=== PATIENT | female | born 1950 | race Caucasian/White ===

== ENCOUNTER 2021-08-01 07:46 | Emergency (ER) | payer MEDICARE, BC ==
[~2021-08-01] VITALS: Ht 165.1 cm; Wt 40.9 kg
[2021-08-01] MEDS ORDERED: normal saline 1000ML IV soln IVB ONE (08:00)
[2021-08-01 08:22] LABS: BASOPHILS # (AUTO) 0.1 X10'3 (0-0.2); BASOPHILS % (AUTO) 0.8 % (0-1); EOSINOPHILS # (AUTO) 0.1 X10'3 (0-0.9); EOSINOPHILS % (AUTO) 0.4 % (0-6); HEMATOCRIT 41.7 % (35.0-45.0); HEMOGLOBIN 14.1 g/dl (12.0-16.0); LYMPHOCYTES # (AUTO) 3.2 X10'3 (1.1-4.8); LYMPHOCYTES % (AUTO) 24.6 % (21-51); MEAN CORPUSCULAR HGB CONC 33.7 g/dL (33.0-36.5); MEAN CORPUSCULAR VOLUME 97.9 FL (78-98); MEAN PLATELET VOLUME 9.6 FL (7.4-10.4); MONOCYTES # (AUTO) 0.6 X10'3 (0-0.9); MONOCYTES % (AUTO) 4.6 % (2-12); NEUTROPHILS # (AUTO) 9.1 X10'3 (1.8-7.7); NEUTROPHILS % (AUTO) 69.6 % (42-75); PLATELET COUNT 292 X10'3 (140-440); RED BLOOD COUNT 4.26 X10'6 (4.20-5.60); RED CELL DISTRIBUTION WIDTH 13.3 % (11.5-14.5); WHITE BLOOD COUNT 13.1 X10'3 (4.5-11.0)
[2021-08-01 08:37] LABS: ALANINE AMINOTRANSFERASE 42 U/L (12-78); ALBUMIN 3.6 G/DL (3.4-5.0); ALBUMIN/GLOBULIN RATIO 1.1 (1.1-1.5); ALKALINE PHOSPHATASE 73 IU/L (46-116); ANION GAP 10 (8-16); ASPARTATE AMINO TRANSFERASE 24 U/L (10-37); BILIRUBIN,TOTAL 0.6 MG/DL (0.1-1.0); BLOOD UREA NITROGEN 13 MG/DL (7-18); BUN/CREATININE RATIO 13.4 (6.6-38.0); CALCIUM 9.3 MG/DL (8.5-10.1); CHLORIDE 111 MMOL/L (99-107); CREATININE 0.97 MG/DL (0.40-0.90); GLUCOSE 191 MG/DL (70-104); POTASSIUM 3.5 MMOL/L (3.5-5.1); SODIUM 147 MMOL/L (135-145); TOTAL CARBON DIOXIDE 25.8 MMOL/L (24-32); TOTAL PROTEIN 6.8 G/DL (6.4-8.2); eGFR 57 ML/MIN
[2021-08-01 09:01] LABS: CLARITY,URINE CLOUDY (Clear); COLOR,URINE YELLOW (Yellow); UA COLLECTION TYPE STRAIGHT CATH
[2021-08-01 09:02] LABS: GLUCOSE, URINE NEGATIVE (Neg); KETONES,URINE NEGATIVE (Neg); LEUKOCYTE ESTERASE ,URINE NEGATIVE (Neg); NITRITES, URINE NEGATIVE (Neg); OCCULT BLOOD,URINE TRACE-INTACT (Neg); PROTEIN,URINE TRACE mg/dl (Neg); UROBILINOGEN,URINE 0.2 E.U/dL (0.2-1.0)
[2021-08-01 09:40] LABS: BACTERIA,URINE 2+ /HPF (Neg); MUCUS STRANDS MANY /LPF (Neg); RBC,URINE 0-2 /HPF (0-2); SQUAMOUS EPITHELIAL CELL,UR MANY /LPF (FEW); WBC,URINE 0-4 /HPF (0-4)
[2021-08-01 10:29] VITALS: BP 117/77
--- NOTE | 2021-08-01 10:45 | NUR ---
at the bedside. Pt is whispering softly to herself.
--- NOTE | 2021-08-01 11:34 | NUR ---
given d/c instructions. IV d/c'd, catheter was intact. Escorted to husbands car via wheelchair.
[2021-08-02] MEDS ORDERED: ESCI20TA39 PO (18:30)
[2021-08-02] MEDS ORDERED: CYAN50009 PO (18:30)
[2021-08-02] MEDS ORDERED: ESOM40CA54 PO (18:30)
[2021-08-02] MEDS ORDERED: OLAN10TA73 PO (18:30)
[2021-08-02] MEDS ORDERED: CHOL500050 PO (18:30)
[2021-08-02] MEDS ORDERED: IBAN150T21 PO (18:30)
== END 2021-08-01 11:32 | disposition home or self-care (01) ==
LOC: ER 07:48
DX: R55 Syncope and collapse (principal); R42 Dizziness and giddiness; E86.0 Dehydration; I95.9 Hypotension, unspecified; Z88.2 Allergy status to sulfonamides; Z88.8 Allergy status to other drugs, medicaments and biological substances
CPT/HCPCS: 36415; 71045; 80053; 81001; 85025; 93005; 99285; J7030

== ENCOUNTER 2021-08-02 16:58 | Inpatient (IN) | payer MEDICARE, BC ==
[~2021-08-02] VITALS: Ht 165.1 cm; Wt 40.8 kg
[2021-08-02 17:30] VITALS: BP 125/83
[2021-08-02] MEDS ORDERED: magnesium 4gm in 100ml NS 100 ML IV PRN (17:35)
[2021-08-02] MEDS ORDERED: ondansetron/PF 4mg/2ml inj IV PRN (17:35)
[2021-08-02] MEDS ORDERED: mag hydrox/Alum hydrox/simeth 30ml oral suspension PO PRN (17:35)
[2021-08-02] MEDS ORDERED: magnesium Cl slow-release 64mg tablet PO PRN (17:35)
[2021-08-02] MEDS ORDERED: potassium Cl 40MEQ/1/2NS 520ml 520 ML IV PRN ×2 (17:35)
[2021-08-02] MEDS ORDERED: magnesium 2GM in 50ml NS 50 ML IV PRN (17:35)
[2021-08-02] MEDS ORDERED: magnesium hydroxide 30ml (MOM) UD suspension PO PRN (17:35)
[2021-08-02] MEDS ORDERED: potassium Cl 20 mEq SR tablet PO PRN ×2 (17:35)
[2021-08-02] MEDS ORDERED: bisacodyl 10mg suppository rectal RC PRN (17:35)
[2021-08-02] MEDS ORDERED: acetaminophen 325mg tablet PO PRN ×2 (17:35)
[2021-08-02] MEDS ORDERED: metoclopramide 5 mg/ml inj IV PRN (17:35)
[2021-08-02] MEDS ORDERED: HYDROcodone/acetaminophen 5mg/325mg tablet PO PRN (17:35)
--- NOTE | 2021-08-02 18:13 | NUR ---
Problems reprioritized. Patient report given, questions answered & plan of care reviewed with Pao Cedeno RN.
[2021-08-02] MEDS ORDERED: IBAN150T21 PO (18:30)
[2021-08-02] MEDS ORDERED: CYAN50009 PO (18:30)
[2021-08-02] MEDS ORDERED: ESCI20TA39 PO (18:30)
[2021-08-02] MEDS ORDERED: CHOL500050 PO (18:30)
[2021-08-02] MEDS ORDERED: OLAN10TA73 PO (18:30)
[2021-08-02] MEDS ORDERED: ESOM40CA54 PO (18:30)
--- NOTE | 2021-08-02 18:30 | NUR ---
Patient in room [facility]. I have received report from DORA BANKS and had the opportunity to ask questions and assume patient care.
[2021-08-02 19:51] LABS: BASOPHILS % (AUTO) 0.3 % (0-1); EOSINOPHILS % (AUTO) 0 % (0-6); HEMATOCRIT 37.4 % (35.0-45.0); HEMOGLOBIN 12.9 g/dl (12.0-16.0); LYMPHOCYTES # (AUTO) 0.8 X10'3 (1.1-4.8); LYMPHOCYTES % (AUTO) 5.7 % (21-51); MEAN CORPUSCULAR HEMOGLOBIN 33.2 PG (27.0-31.0); MEAN CORPUSCULAR HGB CONC 34.3 g/dL (33.0-36.5); MEAN CORPUSCULAR VOLUME 96.7 FL (78-98); MONOCYTES # (AUTO) 0.9 X10'3 (0-0.9); MONOCYTES % (AUTO) 6.1 % (2-12); NEUTROPHILS # (AUTO) 12.4 X10'3 (1.8-7.7); NEUTROPHILS % (AUTO) 87.9 % (42-75); PLATELET COUNT 200 X10'3 (140-440); RED BLOOD COUNT 3.87 X10'6 (4.20-5.60); WHITE BLOOD COUNT 14.1 X10'3 (4.5-11.0)
[2021-08-02 20:00] VITALS: BP 119/77
[2021-08-02] MEDS: K and/or MAG REPLACEMENT MC SCH (20:00)
[2021-08-02 20:04] LABS: ALANINE AMINOTRANSFERASE 45 U/L (12-78); ALBUMIN 3.4 G/DL (3.4-5.0); ALKALINE PHOSPHATASE 58 IU/L (46-116); ANION GAP 9 (8-16); ASPARTATE AMINO TRANSFERASE 32 U/L (10-37); BILIRUBIN,TOTAL 0.7 MG/DL (0.1-1.0); BLOOD UREA NITROGEN 12 MG/DL (7-18); BUN/CREATININE RATIO 12.8 (6.6-38.0); CHLORIDE 108 MMOL/L (99-107); CREATININE 0.94 MG/DL (0.40-0.90); GLUCOSE 148 MG/DL (70-104); MAGNESIUM 2.1 MG/DL (1.5-2.4); POTASSIUM 3.7 MMOL/L (3.5-5.1); SODIUM 145 MMOL/L (135-145); TOTAL CARBON DIOXIDE 27.8 MMOL/L (24-32); TOTAL PROTEIN 6.9 G/DL (6.4-8.2); eGFR 59 ML/MIN
[2021-08-02] MEDS: dextrose 5%-1/4 normal saline 1,000 ML IV SCH (21:44)
[2021-08-02] MEDS: CefTRIAXone/D5W-Rocephin 1gm 50 ML IV SCH (21:50)
[2021-08-02] MEDS: docusate sod 100mg capsule PO SCH ×2 (21:59→22:05)
[2021-08-02] MEDS: heparin, porcine 5000 units/ml vial SQ SCH ×2 (21:59→22:05)
[2021-08-03] VITALS: BP 139/75
[2021-08-03 02:42] LABS: CLARITY,URINE SLIGHTLY CLOUDY (Clear); COLOR,URINE YELLOW (Yellow); GLUCOSE, URINE NEGATIVE (Neg); PROTEIN,URINE NEGATIVE (Neg); UA COLLECTION TYPE STRAIGHT CATH
[2021-08-03 02:43] LABS: KETONES,URINE NEGATIVE (Neg); LEUKOCYTE ESTERASE ,URINE NEGATIVE (Neg); NITRITES, URINE NEGATIVE (Neg); OCCULT BLOOD,URINE SMALL (Neg); UROBILINOGEN,URINE 0.2 E.U/dL (0.2-1.0)
[2021-08-03 03:10] LABS: BACTERIA,URINE 2+ /HPF (Neg); MUCUS STRANDS MODERATE /LPF (Neg); RBC,URINE 0-2 /HPF (0-2); SQUAMOUS EPITHELIAL CELL,UR MODERATE /LPF (FEW); WBC,URINE 0-4 /HPF (0-4)
[2021-08-03] MEDS: dextrose 5%-1/4 normal saline 1,000 ML IV SCH ×3 (06:05→18:35)
--- NOTE | 2021-08-03 06:15 | NUR ---
Problems reprioritized. Patient report given, questions answered & plan of care reviewed with ROSA M BANKS.
[2021-08-03 06:53] LABS: BASOPHILS # (AUTO) 0.1 X10'3 (0-0.2); BASOPHILS % (AUTO) 0.6 % (0-1); EOSINOPHILS % (AUTO) 0.1 % (0-6); HEMATOCRIT 35.9 % (35.0-45.0); HEMOGLOBIN 12.3 g/dl (12.0-16.0); LYMPHOCYTES # (AUTO) 1.4 X10'3 (1.1-4.8); LYMPHOCYTES % (AUTO) 10.9 % (21-51); MEAN CORPUSCULAR HEMOGLOBIN 33.2 PG (27.0-31.0); MEAN CORPUSCULAR HGB CONC 34.2 g/dL (33.0-36.5); MEAN PLATELET VOLUME 10.2 FL (7.4-10.4); MONOCYTES # (AUTO) 1.1 X10'3 (0-0.9); MONOCYTES % (AUTO) 8.9 % (2-12); NEUTROPHILS # (AUTO) 10.1 X10'3 (1.8-7.7); NEUTROPHILS % (AUTO) 79.5 % (42-75); PLATELET COUNT 182 X10'3 (140-440); RED CELL DISTRIBUTION WIDTH 13.6 % (11.5-14.5); WHITE BLOOD COUNT 12.7 X10'3 (4.5-11.0)
[2021-08-03 07:00] VITALS: BP 128/78
[2021-08-03 07:12] LABS: ALANINE AMINOTRANSFERASE 38 U/L (12-78); ALBUMIN 3.1 G/DL (3.4-5.0); ALKALINE PHOSPHATASE 58 IU/L (46-116); ANION GAP 8 (8-16); ASPARTATE AMINO TRANSFERASE 28 U/L (10-37); BILIRUBIN,TOTAL 0.6 MG/DL (0.1-1.0); BLOOD UREA NITROGEN 9 MG/DL (7-18); BUN/CREATININE RATIO 11.1 (6.6-38.0); CALCIUM 8.3 MG/DL (8.5-10.1); CHLORIDE 109 MMOL/L (99-107); CREATININE 0.81 MG/DL (0.40-0.90); GLUCOSE 129 MG/DL (70-104); MAGNESIUM 1.9 MG/DL (1.5-2.4); PHOSPHORUS 3.3 MG/DL (2.3-4.5); POTASSIUM 3.1 MMOL/L (3.5-5.1); SODIUM 144 MMOL/L (135-145); TOTAL CARBON DIOXIDE 26.7 MMOL/L (24-32); TOTAL PROTEIN 6.3 G/DL (6.4-8.2); eGFR 70 ML/MIN
[2021-08-03] MEDS: ESCITALOPRAM OXALATE 5 MG TABLET PO SCH (07:25)
[2021-08-03] MEDS: docusate sod 100mg capsule PO SCH ×2 (07:28→20:45)
[2021-08-03] MEDS: CefTRIAXone/D5W-Rocephin 1gm 50 ML IV SCH (07:29)
[2021-08-03] MEDS: heparin, porcine 5000 units/ml vial SQ SCH ×2 (07:41→20:41)
[2021-08-03] MEDS ORDERED: pantoprazole 40mg Tablet.DR PO SCH (08:00)
[2021-08-03] MEDS: K and/or MAG REPLACEMENT MC SCH ×2 (08:00→20:00)
--- NOTE | 2021-08-03 12:19 | NUR ---
Tiana Villanueva called in for an update. Update given to personnel. Obtained her last weight from the facility, as of 08/01/2021 her weight is 100.2 lbs and her estimated height is 5'2.
--- NOTE | 2021-08-03 18:35 | NUR ---
Patient in room [facility]. I have received report from ROSA M BANKS and had the opportunity to ask questions and assume patient care.
[2021-08-03 20:00] VITALS: BP 126/70
[2021-08-03] MEDS: lactobacillus rhamnosus 10,000 MMU CELLS/CAPSULE PO SCH (20:44)
--- NOTE | 2021-08-03 21:00 | NUR ---
PATIENT NOT DARTED YET PATIENT CONFUSED AND UNABLE TO ANSWER QUESTIONS.
[2021-08-04] VITALS: BP 145/78
[2021-08-04] MEDS: dextrose 5%-1/4 normal saline 1,000 ML IV SCH (02:27)
[2021-08-04 06:04] LABS: ALANINE AMINOTRANSFERASE 42 U/L (12-78); ALBUMIN 2.6 G/DL (3.4-5.0); ALBUMIN/GLOBULIN RATIO 0.8 (1.1-1.5); ALKALINE PHOSPHATASE 54 IU/L (46-116); ANION GAP 8 (8-16); ASPARTATE AMINO TRANSFERASE 26 U/L (10-37); BILIRUBIN,TOTAL 0.5 MG/DL (0.1-1.0); BLOOD UREA NITROGEN 7 MG/DL (7-18); BUN/CREATININE RATIO 8.2 (6.6-38.0); CALCIUM 8.3 MG/DL (8.5-10.1); CHLORIDE 111 MMOL/L (99-107); CREATININE 0.85 MG/DL (0.40-0.90); GLUCOSE 115 MG/DL (70-104); MAGNESIUM 1.8 MG/DL (1.5-2.4); PHOSPHORUS 2.7 MG/DL (2.3-4.5); POTASSIUM 4.3 MMOL/L (3.5-5.1); SODIUM 146 MMOL/L (135-145); TOTAL CARBON DIOXIDE 26.8 MMOL/L (24-32); TOTAL PROTEIN 5.8 G/DL (6.4-8.2); eGFR 67 ML/MIN
[2021-08-04 06:08] LABS: BASOPHILS # (AUTO) 0.1 X10'3 (0-0.2); BASOPHILS % (AUTO) 0.8 % (0-1); EOSINOPHILS % (AUTO) 0.5 % (0-6); HEMATOCRIT 32.4 % (35.0-45.0); HEMOGLOBIN 11.3 g/dl (12.0-16.0); LYMPHOCYTES # (AUTO) 1.6 X10'3 (1.1-4.8); LYMPHOCYTES % (AUTO) 18.9 % (21-51); MEAN CORPUSCULAR HGB CONC 34.9 g/dL (33.0-36.5); MEAN CORPUSCULAR VOLUME 97.2 FL (78-98); MEAN PLATELET VOLUME 10.6 FL (7.4-10.4); MONOCYTES # (AUTO) 0.9 X10'3 (0-0.9); NEUTROPHILS # (AUTO) 6.1 X10'3 (1.8-7.7); NEUTROPHILS % (AUTO) 69.8 % (42-75); PLATELET COUNT 162 X10'3 (140-440); RED BLOOD COUNT 3.33 X10'6 (4.20-5.60); RED CELL DISTRIBUTION WIDTH 13.3 % (11.5-14.5); WHITE BLOOD COUNT 8.7 X10'3 (4.5-11.0)
--- NOTE | 2021-08-04 06:17 | NUR ---
Problems reprioritized. Patient report given, questions answered & plan of care reviewed with HEATHER BANKS.
--- NOTE | 2021-08-04 06:45 | NUR ---
Patient in room [facility]. I have received report from VINAYAK LICEA RN and had the opportunity to ask questions and assume patient care.
[2021-08-04 07:00] VITALS: BP 129/74
[2021-08-04] MEDS: K and/or MAG REPLACEMENT MC SCH ×2 (08:00→20:00)
[2021-08-04] MEDS: dextrose 5%-water 1,000 ML IV SCH ×2 (10:27→21:48)
[2021-08-04] MEDS: CefTRIAXone/D5W-Rocephin 1gm 50 ML IV SCH (10:33)
[2021-08-04] MEDS: pantoprazole 40 MG vial IV SCH (10:34)
[2021-08-04] MEDS: heparin, porcine 5000 units/ml vial SQ SCH ×2 (10:42→21:47)
[2021-08-04] MEDS: ESCITALOPRAM OXALATE 5 MG TABLET PO SCH (10:46)
[2021-08-04] MEDS: docusate sod 100mg capsule PO SCH ×2 (10:46→21:46)
[2021-08-04] MEDS: lactobacillus rhamnosus 10,000 MMU CELLS/CAPSULE PO SCH ×2 (10:46→21:47)
[2021-08-04] MEDS: OLANZapine 2.5MG tablet PO SCH (10:59)
[2021-08-04 11:00] VITALS: BP 126/81
--- NOTE | 2021-08-04 18:56 | NUR ---
Problems reprioritized. Patient report given, questions answered & plan of care reviewed with JOCELYN RAYMUNDO.
[2021-08-04 19:00] VITALS: BP 142/86
[2021-08-04 23:47] VITALS: BP 145/85
--- NOTE | 2021-08-05 00:54 | NUR ---
pt resting eyes closed without changes.
[2021-08-05 05:56] LABS: BASOPHILS # (AUTO) 0.1 X10'3 (0-0.2); BASOPHILS % (AUTO) 1.3 % (0-1); EOSINOPHILS # (AUTO) 0.1 X10'3 (0-0.9); EOSINOPHILS % (AUTO) 1.9 % (0-6); HEMATOCRIT 34.7 % (35.0-45.0); LYMPHOCYTES # (AUTO) 1.5 X10'3 (1.1-4.8); LYMPHOCYTES % (AUTO) 22.6 % (21-51); MEAN CORPUSCULAR HEMOGLOBIN 33.8 PG (27.0-31.0); MEAN CORPUSCULAR HGB CONC 34.5 g/dL (33.0-36.5); MEAN PLATELET VOLUME 10.9 FL (7.4-10.4); MONOCYTES # (AUTO) 0.8 X10'3 (0-0.9); MONOCYTES % (AUTO) 12.2 % (2-12); NEUTROPHILS # (AUTO) 4.2 X10'3 (1.8-7.7); PLATELET COUNT 191 X10'3 (140-440); RED BLOOD COUNT 3.54 X10'6 (4.20-5.60); RED CELL DISTRIBUTION WIDTH 13.1 % (11.5-14.5); WHITE BLOOD COUNT 6.8 X10'3 (4.5-11.0)
[2021-08-05 06:12] LABS: ALANINE AMINOTRANSFERASE 36 U/L (12-78); ALBUMIN 2.7 G/DL (3.4-5.0); ALBUMIN/GLOBULIN RATIO 0.8 (1.1-1.5); ALKALINE PHOSPHATASE 60 IU/L (46-116); ANION GAP 8 (8-16); ASPARTATE AMINO TRANSFERASE 23 U/L (10-37); BILIRUBIN,TOTAL 0.6 MG/DL (0.1-1.0); BLOOD UREA NITROGEN 6 MG/DL (7-18); BUN/CREATININE RATIO 7.1 (6.6-38.0); CALCIUM 8.7 MG/DL (8.5-10.1); CHLORIDE 108 MMOL/L (99-107); CREATININE 0.84 MG/DL (0.40-0.90); GLUCOSE 114 MG/DL (70-104); MAGNESIUM 1.9 MG/DL (1.5-2.4); PHOSPHORUS 4.3 MG/DL (2.3-4.5); POTASSIUM 3.8 MMOL/L (3.5-5.1); SODIUM 146 MMOL/L (135-145); TOTAL PROTEIN 6.2 G/DL (6.4-8.2); eGFR 67 ML/MIN
--- NOTE | 2021-08-05 06:25 | NUR ---
Problems reprioritized. Patient report given, questions answered & plan of care reviewed with Lori Marlow. Addendum: 08/05/21 at 0626 by Rose Mary James RN Amended: Links added.
[2021-08-05] MEDS: CefTRIAXone/D5W-Rocephin 1gm 50 ML IV SCH (07:31)
[2021-08-05] MEDS: pantoprazole 40 MG vial IV SCH (07:35)
[2021-08-05] MEDS: lactobacillus rhamnosus 10,000 MMU CELLS/CAPSULE PO SCH ×2 (07:38→20:26)
[2021-08-05] MEDS: heparin, porcine 5000 units/ml vial SQ SCH ×2 (07:38→20:26)
[2021-08-05] MEDS: OLANZapine 2.5MG tablet PO SCH (07:38)
[2021-08-05] MEDS: docusate sod 100mg capsule PO SCH ×2 (07:38→20:26)
[2021-08-05] MEDS: ESCITALOPRAM OXALATE 5 MG TABLET PO SCH (07:40)
[2021-08-05] MEDS: K and/or MAG REPLACEMENT MC SCH ×2 (08:00→20:00)
[2021-08-05 08:21] LABS: LARGE PLATELETS FEW; PLATELET ESTIMATE NORMAL
[2021-08-05 08:53] VITALS: BP 132/79
[2021-08-05] MEDS: trihexyphenidyl 2mg tablet PO SCH (09:14)
[2021-08-05] MEDS: dextrose 5%-water 1,000 ML IV SCH ×2 (10:40→22:24)
[2021-08-05 12:47] VITALS: BP 111/63
[2021-08-05 20:00] VITALS: BP 101/68
--- NOTE | 2021-08-05 20:00 | NUR ---
PT IS BLIND.
[2021-08-06] VITALS: BP 120/75
[2021-08-06 05:58] LABS: BASOPHILS % (AUTO) 0.6 % (0-1); EOSINOPHILS # (AUTO) 0.1 X10'3 (0-0.9); EOSINOPHILS % (AUTO) 0.8 % (0-6); HEMATOCRIT 33.9 % (35.0-45.0); HEMOGLOBIN 11.7 g/dl (12.0-16.0); LYMPHOCYTES # (AUTO) 1.5 X10'3 (1.1-4.8); MEAN CORPUSCULAR HEMOGLOBIN 33.2 PG (27.0-31.0); MEAN CORPUSCULAR HGB CONC 34.6 g/dL (33.0-36.5); MEAN PLATELET VOLUME 9.8 FL (7.4-10.4); MONOCYTES # (AUTO) 1.1 X10'3 (0-0.9); MONOCYTES % (AUTO) 13.1 % (2-12); NEUTROPHILS # (AUTO) 5.5 X10'3 (1.8-7.7); NEUTROPHILS % (AUTO) 67.5 % (42-75); PLATELET COUNT 223 X10'3 (140-440); RED BLOOD COUNT 3.53 X10'6 (4.20-5.60); WHITE BLOOD COUNT 8.1 X10'3 (4.5-11.0)
[2021-08-06 06:19] LABS: ALANINE AMINOTRANSFERASE 30 U/L (12-78); ALBUMIN 2.7 G/DL (3.4-5.0); ALBUMIN/GLOBULIN RATIO 0.8 (1.1-1.5); ALKALINE PHOSPHATASE 68 IU/L (46-116); ANION GAP 11 (8-16); ASPARTATE AMINO TRANSFERASE 22 U/L (10-37); BILIRUBIN,TOTAL 0.7 MG/DL (0.1-1.0); BLOOD UREA NITROGEN 5 MG/DL (7-18); BUN/CREATININE RATIO 6.3 (6.6-38.0); CALCIUM 8.7 MG/DL (8.5-10.1); CHLORIDE 107 MMOL/L (99-107); GLUCOSE 112 MG/DL (70-104); MAGNESIUM 1.8 MG/DL (1.5-2.4); PHOSPHORUS 3.1 MG/DL (2.3-4.5); POTASSIUM 3.2 MMOL/L (3.5-5.1); SODIUM 145 MMOL/L (135-145); TOTAL CARBON DIOXIDE 26.9 MMOL/L (24-32); eGFR 71 ML/MIN
--- NOTE | 2021-08-06 06:19 | NUR ---
Problems reprioritized. Patient report given, questions answered & plan of care reviewed with CARLA. Addendum: 08/06/21 at 0620 by Mark Nelson RN Amended: Links added.
[2021-08-06] MEDS: dextrose 5%-water 1,000 ML IV SCH ×2 (06:42→16:42)
[2021-08-06 07:39] VITALS: BP 135/79
[2021-08-06] MEDS: K and/or MAG REPLACEMENT MC SCH ×2 (08:00→20:56)
[2021-08-06] MEDS: pantoprazole 40mg Tablet.DR PO SCH (08:21)
[2021-08-06] MEDS: lactobacillus rhamnosus 10,000 MMU CELLS/CAPSULE PO SCH ×2 (08:21→20:44)
[2021-08-06] MEDS: docusate sod 100mg capsule PO SCH ×2 (08:22→20:44)
[2021-08-06] MEDS: OLANZapine 2.5MG tablet PO SCH (08:22)
[2021-08-06] MEDS: trihexyphenidyl 2mg tablet PO SCH (08:23)
[2021-08-06] MEDS: heparin, porcine 5000 units/ml vial SQ SCH ×2 (08:23→20:45)
[2021-08-06] MEDS: ESCITALOPRAM OXALATE 5 MG TABLET PO SCH (08:24)
[2021-08-06] MEDS: CefTRIAXone/D5W-Rocephin 1gm 50 ML IV SCH (08:29)
[2021-08-06] MEDS ORDERED: POTASSIUM BICARB 20meq eff tab 20 MEQ TABLET.EFF PO PRN ×4 (10:40→10:55)
[2021-08-06] MEDS ORDERED: potassium Cl 40MEQ/1/2NS 520ml 520 ML IV PRN (10:55)
[2021-08-06] MEDS ORDERED: magnesium Cl slow-release 64mg tablet PO PRN (10:55)
[2021-08-06] MEDS ORDERED: magnesium 4gm in 100ml NS 100 ML IV PRN (10:55)
[2021-08-06 11:00] VITALS: BP 110/70
[2021-08-06] MEDS: levoFLOXACIN-Levaquin 250mg/D5 50 ML IV SCH (12:25)
--- NOTE | 2021-08-06 18:52 | NUR ---
Report given to ALANA bishop RN
[2021-08-06 20:00] VITALS: BP 126/75
[2021-08-06] MEDS: baclofen 10mg tablet PO SCH (20:44)
[2021-08-06 23:16] VITALS: BP 140/74
[2021-08-07] VITALS: BP 126/80
[2021-08-07] MEDS: dextrose 5%-water 1,000 ML IV SCH ×3 (02:42→22:56)
[2021-08-07 05:45] LABS: BASOPHILS % (AUTO) 0.5 % (0-1); EOSINOPHILS # (AUTO) 0.1 X10'3 (0-0.9); EOSINOPHILS % (AUTO) 0.6 % (0-6); HEMATOCRIT 33.9 % (35.0-45.0); HEMOGLOBIN 11.6 g/dl (12.0-16.0); LYMPHOCYTES # (AUTO) 1.5 X10'3 (1.1-4.8); LYMPHOCYTES % (AUTO) 16.4 % (21-51); MEAN CORPUSCULAR HEMOGLOBIN 33.3 PG (27.0-31.0); MEAN CORPUSCULAR HGB CONC 34.2 g/dL (33.0-36.5); MEAN CORPUSCULAR VOLUME 97.3 FL (78-98); MEAN PLATELET VOLUME 10.2 FL (7.4-10.4); MONOCYTES % (AUTO) 11.6 % (2-12); NEUTROPHILS # (AUTO) 6.3 X10'3 (1.8-7.7); NEUTROPHILS % (AUTO) 70.9 % (42-75); PLATELET COUNT 245 X10'3 (140-440); RED BLOOD COUNT 3.48 X10'6 (4.20-5.60); RED CELL DISTRIBUTION WIDTH 13.1 % (11.5-14.5); WHITE BLOOD COUNT 8.8 X10'3 (4.5-11.0)
[2021-08-07 06:25] LABS: ALANINE AMINOTRANSFERASE 31 U/L (12-78); ALBUMIN 2.6 G/DL (3.4-5.0); ALBUMIN/GLOBULIN RATIO 0.8 (1.1-1.5); ALKALINE PHOSPHATASE 69 IU/L (46-116); ANION GAP 8 (8-16); ASPARTATE AMINO TRANSFERASE 21 U/L (10-37); BILIRUBIN,TOTAL 0.6 MG/DL (0.1-1.0); BLOOD UREA NITROGEN 7 MG/DL (7-18); CALCIUM 8.5 MG/DL (8.5-10.1); CHLORIDE 110 MMOL/L (99-107); CREATININE 0.78 MG/DL (0.40-0.90); GLUCOSE 117 MG/DL (70-104); MAGNESIUM 1.8 MG/DL (1.5-2.4); POTASSIUM 3.9 MMOL/L (3.5-5.1); SODIUM 144 MMOL/L (135-145); TOTAL CARBON DIOXIDE 26.4 MMOL/L (24-32); TOTAL PROTEIN 5.9 G/DL (6.4-8.2); eGFR 73 ML/MIN
--- NOTE | 2021-08-07 06:34 | NUR ---
Problems reprioritized. Patient report given, questions answered & plan of care reviewed with JOCELYN Tripathi.
[2021-08-07 07:00] VITALS: BP 108/72
[2021-08-07] MEDS: K and/or MAG REPLACEMENT MC SCH ×2 (08:00→20:00)
[2021-08-07] MEDS: levoFLOXACIN-Levaquin 250mg/D5 50 ML IV SCH (09:08)
[2021-08-07] MEDS: ESCITALOPRAM OXALATE 5 MG TABLET PO SCH (09:08)
[2021-08-07] MEDS: pantoprazole 40mg Tablet.DR PO SCH (09:08)
[2021-08-07] MEDS: heparin, porcine 5000 units/ml vial SQ SCH ×2 (09:09→20:31)
[2021-08-07] MEDS: OLANZapine 2.5MG tablet PO SCH (09:09)
[2021-08-07] MEDS: docusate sod 100mg capsule PO SCH ×2 (09:09→20:30)
[2021-08-07] MEDS: lactobacillus rhamnosus 10,000 MMU CELLS/CAPSULE PO SCH ×2 (09:09→20:31)
[2021-08-07] MEDS: baclofen 10mg tablet PO SCH ×2 (09:09→20:31)
[2021-08-07] MEDS: trihexyphenidyl 2mg tablet PO SCH (09:10)
[2021-08-07 11:00] VITALS: BP 118/69
--- NOTE | 2021-08-07 14:36 | NUR ---
Initial: Pt admit for metabolic encephalopathy with possible UTI and dehydration. Pt A/O x 1 and confused with h/o Alzheimer's dementia per EMR. Pt initially on a clear liquid diet with fluctuating PO intake documented with average 50% PO intake, though down to 25% PO intake at first meal with diet advancement to minced and moist grind all. Pending documentation of PO intake for today. Noted pt receiving D5 at 100 mL/hr providing 408 kcal/day. Pt documented to be receiving assistance with meals at times, though would benefit from assistance at all meals given decreased mentation. Noted pt with a low BMI of 15 using scaled wt of 40.8 kg. No wt hx in EMR and pt appears well developed well nourished per H&P. Unsure of accuracy in current wt. Pt with no documented edema or wounds. No BM since admit. Pt receiving routine bowel care and received first dose of PRN MoM today. D/w dietary to send prune juice with next meal to further assist with bowel regularity. Will continue to follow closely and monitor need for further nutrition intervention pending trends in PO intake since PO diet advancement. Recommendations: 1) Continue MM5 diet with thin liquids; monitor need for BSS with ST 2) Monitor need for ONS pending trends in PO intake since diet advancement 3) Encourage PO intake and assist with meals given ALOC 4) Routine bowel care 5) Weekly scaled weights Addendum: 08/07/21 at [address] Amended: Links added.
--- NOTE | 2021-08-07 18:37 | NUR ---
GAVE REPORT TO KIRILL BANKS.
[2021-08-07 20:00] VITALS: BP 126/78
[2021-08-08] VITALS: BP 116/71
--- NOTE | 2021-08-08 06:23 | NUR ---
Problems reprioritized. Patient report given, questions answered & plan of care reviewed with JOCELYN Patterson. .
[2021-08-08 06:58] LABS: MAGNESIUM 2.2 MG/DL (1.5-2.4)
[2021-08-08 07:00] VITALS: BP 122/57
[2021-08-08] MEDS ORDERED: docusate sodium 100mg/10ml UD cup PO SCH (07:04)
[2021-08-08] MEDS: K and/or MAG REPLACEMENT MC SCH (08:00)
[2021-08-08] MEDS: heparin, porcine 5000 units/ml vial SQ SCH (08:00)
[2021-08-08] MEDS: ESCITALOPRAM OXALATE 5 MG TABLET PO SCH (08:32)
[2021-08-08] MEDS: lactobacillus rhamnosus 10,000 MMU CELLS/CAPSULE PO SCH (08:32)
[2021-08-08] MEDS: levoFLOXACIN-Levaquin 250mg/D5 50 ML IV SCH (08:33)
[2021-08-08] MEDS: trihexyphenidyl 2mg tablet PO SCH (08:33)
[2021-08-08] MEDS: OLANZapine 2.5MG tablet PO SCH (08:33)
[2021-08-08] MEDS: pantoprazole 40mg Tablet.DR PO SCH (08:34)
[2021-08-08] MEDS: baclofen 10mg tablet PO SCH (08:34)
[2021-08-08] MEDS: dextrose 5%-water 1,000 ML IV SCH (08:42)
[2021-08-08 10:32] LABS: ANION GAP 9 (8-16); BLOOD UREA NITROGEN 7 MG/DL (7-18); BUN/CREATININE RATIO 9.3 (6.6-38.0); CALCIUM 8.8 MG/DL (8.5-10.1); CHLORIDE 106 MMOL/L (99-107); CREATININE 0.75 MG/DL (0.40-0.90); POTASSIUM 3.7 MMOL/L (3.5-5.1); SODIUM 142 MMOL/L (135-145); TOTAL CARBON DIOXIDE 27.3 MMOL/L (24-32); TOTAL PROTEIN 6.1 G/DL (6.4-8.2); eGFR 77 ML/MIN
[2021-08-08 10:52] LABS: ALANINE AMINOTRANSFERASE 34 U/L (12-78); ALBUMIN 2.6 G/DL (3.4-5.0); ALBUMIN/GLOBULIN RATIO 0.7 (1.1-1.5); ALKALINE PHOSPHATASE 97 IU/L (46-116); ASPARTATE AMINO TRANSFERASE 21 U/L (10-37); BILIRUBIN,TOTAL 0.6 MG/DL (0.1-1.0); GLUCOSE 113 MG/DL (70-104)
--- NOTE | 2021-08-08 11:22 | NUR ---
PAGER ID: [phone] MESSAGE: [facility] Baldo Jewell: please call regarding this patient, I missed you when you rounded! thanks! [phone]
[2021-08-08 11:30] LABS: BASOPHILS % (AUTO) 0.4 % (0-1); EOSINOPHILS # (AUTO) 0.1 X10'3 (0-0.9); EOSINOPHILS % (AUTO) 1.3 % (0-6); HEMATOCRIT 35.5 % (35.0-45.0); LYMPHOCYTES # (AUTO) 1.2 X10'3 (1.1-4.8); LYMPHOCYTES % (AUTO) 11.9 % (21-51); MEAN CORPUSCULAR HGB CONC 33.6 g/dL (33.0-36.5); MEAN CORPUSCULAR VOLUME 98.2 FL (78-98); MEAN PLATELET VOLUME 10.6 FL (7.4-10.4); MONOCYTES % (AUTO) 9.6 % (2-12); NEUTROPHILS # (AUTO) 7.7 X10'3 (1.8-7.7); NEUTROPHILS % (AUTO) 76.8 % (42-75); PLATELET COUNT 285 X10'3 (140-440); RED BLOOD COUNT 3.62 X10'6 (4.20-5.60); RED CELL DISTRIBUTION WIDTH 13.3 % (11.5-14.5)
[2021-08-08] MEDS ORDERED: BAC10T PO (12:33)
[2021-08-08] MEDS ORDERED: LEVO250T43 PO (12:33)
--- NOTE | 2021-08-08 12:56 | NUR ---
Page sent to ... [facility] Baldo Jewell: Discharge back to [facility] orders are in. patient will need transportation. thanks!
[2021-08-08 13:00] VITALS: BP 101/65
--- NOTE | 2021-08-08 14:05 | NUR ---
Plan of Care updated with at bedside. Addendum: 08/08/21 at 1406 by Yesenia Snyder RN Amended: Links added.
--- NOTE | 2021-08-08 15:21 | NUR ---
Patient stable and appropriate for transfer back to [facility] via [facility]. All belongings taken from room, IV removed. New medications e-scripted to preferred pharmacy. All discharge instructions and education given and reviewed with her at the bedside. All questions answered.
== END 2021-08-08 15:16 | disposition home health service (06) | DRG 682 ==
LOC: SUR 3N 18:06
PROVIDERS: ADMIT Family Medicine; ATTEND Family Medicine
DX: N17.0 Acute kidney failure with tubular necrosis (principal); G93.41 Metabolic encephalopathy; N39.0 Urinary tract infection, site not specified; E87.0 Hyperosmolality and hypernatremia; G24.09 Other drug induced dystonia; F02.80 Dementia in other diseases classified elsewhere, unspecified severity, without behavioral disturbance, psychotic disturbance, mood disturbance, and anxiety; E78.5 Hyperlipidemia, unspecified; D64.9 Anemia, unspecified; E86.0 Dehydration; Z20.822 Contact with and (suspected) exposure to COVID-19; B95.7 Other staphylococcus as the cause of diseases classified elsewhere; E87.6 Hypokalemia; B95.2 Enterococcus as the cause of diseases classified elsewhere; T43.595A Adverse effect of other antipsychotics and neuroleptics, initial encounter; G30.9 Alzheimer's disease, unspecified; H54.8 Legal blindness, as defined in USA; Z66 Do not resuscitate; Z85.3 Personal history of malignant neoplasm of breast; Z79.899 Other long term (current) drug therapy; Z88.2 Allergy status to sulfonamides; Z88.8 Allergy status to other drugs, medicaments and biological substances; Y92.89 Other specified places as the place of occurrence of the external cause
CPT/HCPCS: 36415; 70450; 71045; 72040; 80053; 81001; 83735; 84100; 85008; 85025; 87040; 87077; 87081; 87088; 87186; 87635; 92508; 92616; 93005; 97110; 97116; 97161; 97530; 99285; C9113; G0378; J0696; J1644; J1956; J2405; J2765; J3480; J7030; J7070